=== PATIENT | female | born 1965 ===

== ENCOUNTER 2020-11-18 09:43 | Outpatient (CLI) | payer BC | END 2020-11-18 10:00 | disposition home or self-care (01) | LOC: MAMO-SONO 09:43 | PROVIDERS: ATTEND Obstetrics & Gynecology Maternal & Fetal Medicine | DX: N63 Unspecified lump in breast (principal); Z12.31 Encounter for screening mammogram for malignant neoplasm of breast; N64.4 Mastodynia; N60.11 Diffuse cystic mastopathy of right breast ==

== ENCOUNTER 2022-03-31 10:32 | Outpatient (CLI) | payer BC | END 2022-03-31 10:43 | disposition home or self-care (01) | LOC: RAD 10:32 | PROVIDERS: ATTEND Podiatrist | DX: M25.871 Other specified joint disorders, right ankle and foot (principal) ==